=== PATIENT | male | born 1970 | race Caucasian/White ===

== ENCOUNTER → 2016-09-22 | Outpatient (CLI) | payer MEDICARE ==
[2016-09-22 11:16] LABS: HEMOGLOBIN 15.4 gm/dl (14.0-17.5); RED BLOOD COUNT 4.74 M/UL (4.20-5.50); WHITE BLOOD COUNT 7.2 K/UL (4.5-11.0)
[2016-09-22 11:35] LABS: BUN/CREATININE RATIO 14 (0-10)
== END ==
LOC: US 09:00
PROVIDERS: Nurse Practitioner
DX: B18.2 Chronic viral hepatitis C (principal); K76.0 Fatty (change of) liver, not elsewhere classified
CPT/HCPCS: 36415; 76700; 80053; 80074; 80307; 82103; 82105; 82172; 82247; 82390; 82728; 82977; 83010; 83540; 83550; 83883; 84460; 85027; 85610; 86039; 86235; 86255; 87390; 87521; G0480